=== PATIENT | male | born 1995 | race Hispanic/Latino ===

== ENCOUNTER 2018-05-06 13:18 | Emergency (ER) | payer OTHER ==
--- NOTE | 2018-05-06 13:38 | ED PDOC ---
HPI: Trauma/Fall - HPI Time Seen by Provider: 05/06/18 13:30 Chief Complaint (Nursing): Trauma Chief Complaint (Provider): Trauma History Per: Patient History/Exam Limitations: no limitations Onset/Duration Of Symptoms: Days (x1) Additional Complaint(s): 22 year old male presents to the ED for evaluation s/p falling. Patient reports that last night, he went out drinking with friends, and as per friends, he tripped and fell, hitting his face on a curb. He is unsure if he lost consciousness. At this time, patient is complaining of nasal pain, headache, and a laceration to the right side of her tongue. Otherwise, denies limb pain, neck pain, chest pain, and anticoagulant use. Tetanus not up to date. PMD: none provided Past Medical History Reviewed: Historical Data, Nursing Documentation, Vital Signs Vital Signs: Last Vital Signs Temp 97.6 F 05/06/18 13:23 Pulse 118 H 05/06/18 13:23 Resp 18 05/06/18 13:23 BP 120/73 05/06/18 13:23 Pulse Ox 99 05/06/18 13:23 - Medical History PMH: No Chronic Diseases - Surgical History Surgical History: No Surg Hx - Family History Family History: States: No Known Family Hx - Social History Current smoker - smoking cessation education provided: No Alcohol: Social Drugs: Denies - Home Medications Home Medications: Ambulatory Orders Medication Instructions Recorded Amoxicillin/Clavulanate [Augmentin 1 tab PO BID #20 tab 05/06/18 500 MG-125 MG] - Allergies Allergies/Adverse Reactions: Allergies Allergy/AdvReac Type Severity Reaction Status Date / Time No Known Allergies Allergy Verified 05/06/18 13:23 Review of Systems ROS Statement: Except As Marked, All Systems Reviewed And Found Negative ENT: Positive for: Nose Pain, Other (laceration to right side of tongue) Cardiovascular: Negative for: Chest Pain Musculoskeletal: Negative for: Neck Pain, Arm Pain, Leg Pain Neurological: Positive for: Headache, Other (possible loss of consciousness) Physical Exam - Reviewed Nursing Documentation Reviewed: Yes Vital Signs Reviewed: Yes - Physical Exam Appears: Positive for: No Acute Distress (gait steady and unassisted in ED) Head Exam: Negative for: ATRAUMATIC (moderate swelling and ecchymosis to nasal bridge; no septal hematoma bilaterally; multiple superficial abrasions to face) Eye Exam: Positive for: Normal appearance. Negative for: Periorbital swelling, Periorbital tenderness, Other (hyphema) ENT: Positive for: TM Is/Are (unremarkable. no hemotympanum noted bilaterally.) , Other (right side of tongue: small t-shaped laceration which is not through and through. gravel noted in laceration, no bleeding. speech unaffected.) Neck: Positive for: Normal, Painless ROM, Supple Neurologic/Psych: Positive for: Alert, Oriented (x3). Negative for: Motor/ Sensory Deficits - ECG O2 Sat by Pulse Oximetry: 99 (RA) Pulse Ox Interpretation: Normal - Progress ED Course And Treament: Case d/w Dr. Velasco who recommends loosely suturing laceration. Medical Decision Making Medical Decision Making: Time: 1338 Initial Impression: trauma s/p trip and fall Initial Plan: --Lidocaine hydrochloride 1% 3ml INFIL --CT head w/o contrast --CT maxillofacial w/o contrast --Tetanus booster 1423 CT head FINDINGS: HEMORRHAGE: No intracranial hemorrhage. BRAIN: No mass effect or edema. No atrophy or chronic microvascular ischemic changes. VENTRICLES: Unremarkable. No hydrocephalus. CALVARIUM: Unremarkable. PARANASAL SINUSES: Unremarkable as visualized. No significant inflammatory changes. MASTOID AIR CELLS: Unremarkable as visualized. No inflammatory changes. OTHER FINDINGS: None. IMPRESSION: Normal CT of the Head. 1425 CT maxillofacial FINDINGS: NASAL BONES: Comminuted nasal bone fracture. ORBITS: Unremarkable. PARANASAL SINUSES/ MASTOIDS: Clear. MAXILLA: Unremarkable. MANDIBLE/ TEMPOROMANDIBULAR JOINTS: Unremarkable. SKULL BASE: Unremarkable. TEMPORAL BONES: Middle ears and mastoid grossly unremarkable. OTHER FINDINGS: None. IMPRESSION: Comminuted nasal bone fracture Advised to f/u with Dr. Middleton, ENT. Informed of need for clear liquid diet. Scribe Attestation: Documented by Erika Pappas acting as a scribe for Victoriano Alvarez PA-C. Provider Scribe Attestation: All medical record entries made by the Scribe were at my direction and personally dictated by me. I have reviewed the chart and agree that the record accurately reflects my personal performance of the history, physical exam, medical decision making, and the department course for this patient. I have also personally directed, reviewed, and agree with the discharge instructions and disposition. Procedures - Time-Out Type of Procedure: Laceration repair Site of Procedure: tongue Correct Patient (with visual ID + MR# on ID Band): Yes Correct Procedure: Yes Correct Site Marked: Yes PA/Tech: Antonio RAMIREZ - Laceration/Wound Repair laceration repair Wound Length (cm): 1 Wound's Depth, Shape: superficial, irregular Wound Explored: foreign body removed (2 small pieces of gravel removed) Irrigated w/ Saline (ccs): 100 Anesthesia: 1% Lidocaine Volume Anesthetic (ccs): 2 Wound Repaired With: Sutures (loosely sutured) Suture Size/Type: 6:0, nylon Number of Sutures: 3 Layer Closure?: No Wound Complexity: Intermediate Disposition - Clinical Impression Clinical Impression: Nasal fracture, Head injury, Tongue laceration - Patient ED Disposition Is Patient to be Admitted: No - [facility] Manfred Middleton MD [Staff Provider] - Disposition: Routine/Home Disposition Time: 15:10 Condition: STABLE Additional Instructions: FREDDIE POLK, thank you for letting us take care of you today. Your provider was Jessica Velasco MD and you were treated for FALL: NOSE INJURY. The emergency medical care you received today was directed at your acute symptoms. If you were prescribed any medication, please fill it and take as directed. It may take several days for your symptoms to resolve. Return to the Emergency Department if your symptoms worsen, do not improve, or if you have any other problems. Please contact your doctor or call one of the physicians/clinics you have been referred to that are listed on the Patient Visit Information form that is included in your discharge packet. Bring any paperwork you were given at discharge with you along with any medications you are taking to your follow up visit. Our treatment cannot replace ongoing medical care by a primary care provider outside of the emergency department. Thank you for allowing the [facility] team to be part of your care today. If you had an X-Ray or CT scan: A Radiologist will review the ED reading if any change in treatment is needed we will contact you. If you had a blood, urine, or wound culture: It will take several days for the results, if any change in treatment is needed we will contact you. If you had an STI test: It will take 48 hours for the results. Please call after 1 week if you have not heard back. Prescriptions: Amoxicillin/Clavulanate [Augmentin 500 MG-125 MG] 1 tab PO BID #20 tab Instructions: Clear Liquid Diet, Closed Head Injury (DC), Nose Fracture (DC) Forms: [employer] (Czech) Print Language: SLOVENIAN
[2018-05-06] MEDS ORDERED: Lidocaine 1% (10 ml) Inj INFIL ONE (13:39)
--- NOTE | 2018-05-06 14:25 | CT ---
Date of service: 05/06/2018 PROCEDURE: CT HEAD WITHOUT CONTRAST. HISTORY: trauma COMPARISON: None available. TECHNIQUE: Axial computed tomography images were obtained through the head/brain without intravenous contrast. Radiation dose: Total exam DLP = mGy-cm. This CT exam was performed using one or more of the following dose reduction techniques: Automated exposure control, adjustment of the mA and/or kV according to patient size, and/or use of iterative reconstruction technique. FINDINGS: HEMORRHAGE: No intracranial hemorrhage. BRAIN: No mass effect or edema. No atrophy or chronic microvascular ischemic changes. VENTRICLES: Unremarkable. No hydrocephalus. CALVARIUM: Unremarkable. PARANASAL SINUSES: Unremarkable as visualized. No significant inflammatory changes. MASTOID AIR CELLS: Unremarkable as visualized. No inflammatory changes. OTHER FINDINGS: None. IMPRESSION: Normal CT of the Head.
--- NOTE | 2018-05-06 14:27 | CT ---
Date of service: 05/06/2018 PROCEDURE: CT MAXILLOFACIAL BONES WITHOUT CONTRAST HISTORY: trauma COMPARISON: None available. TECHNIQUE: Contiguous axial CT images of the maxillofacial bones were obtained. Coronal and sagittal reformats were generated. Radiation dose: Total exam DLP = mGy-cm. This CT exam was performed using one or more of the following dose reduction techniques: Automated exposure control, adjustment of the mA and/or kV according to patient size, and/or use of iterative reconstruction technique. FINDINGS: NASAL BONES: Comminuted nasal bone fracture. ORBITS: Unremarkable. PARANASAL SINUSES/ MASTOIDS: Clear. MAXILLA: Unremarkable. MANDIBLE/ TEMPOROMANDIBULAR JOINTS: Unremarkable. SKULL BASE: Unremarkable. TEMPORAL BONES: Middle ears and mastoid grossly unremarkable. OTHER FINDINGS: None. IMPRESSION: Comminuted nasal bone fracture
[2018-05-06] MEDS ORDERED: Tdap Vaccine 0.5 ml Vial (10-64 yrs) IM ONE ×2 (15:27→15:37)
[2018-05-06 15:46] VITALS: BP 118/78; PULSE 93; RESP 20; TEMP 98
[2018-05-06 22:17] VITALS: O2SAT 99
== END 2018-05-06 15:46 | disposition home or self-care (01) ==
LOC: H.ER 13:18
DX: S01.512A Laceration without foreign body of oral cavity, initial encounter (principal); S02.2XXA Fracture of nasal bones, initial encounter for closed fracture; W01.0XXA Fall on same level from slipping, tripping and stumbling without subsequent striking against object, initial encounter; Y92.480 Sidewalk as the place of occurrence of the external cause